=== PATIENT | female | born 1960 | race Two or more races ===

== ENCOUNTER → 2017-06-08 09:32 | Outpatient (CLI) | payer OTHER ==
[~2017-06-08 09:32] MED LIST: AVAPRO300 MG
== END | disposition home or self-care (01) ==
LOC: LAB 09:32
DX: E03.8 Other specified hypothyroidism (principal); E21.3 Hyperparathyroidism, unspecified; E88.89 Other specified metabolic disorders; M81.8 Other osteoporosis without current pathological fracture; E56.1 Deficiency of vitamin K; E83.42 Hypomagnesemia

== ENCOUNTER 2024-08-17 07:43 | Day surgery (SDC) | payer OTHER ==
[2024-08-17] MEDS ORDERED: MIDAZOLAM HCL 2 MG/2 ML VIAL IV ONE (15:30)
[2024-08-17] MEDS ORDERED: DIPHENHYDRAMINE HCL 50 MG/ML VIAL 1ML IV ONE (15:30)
[2024-08-17] MEDS ORDERED: fentaNYL CITRATE 50 MCG/ML AMPUL IV PUSH ONE (15:30)
[2024-08-17] MEDS ORDERED: ONDANSETRON HCL 2 MG/ML VIAL IV ONE (15:30)
== END 2024-08-17 17:15 | disposition home or self-care (01) ==
LOC: AMB-ENDOS 07:43 → CIR.AMB 13:30 → AMB-ENDOS 17:15
PROVIDERS: ATTEND Colon & Rectal Surgery
DX: K62.1 Rectal polyp (principal); K63.5 Polyp of colon; K57.30 Diverticulosis of large intestine without perforation or abscess without bleeding; K57.32 Diverticulitis of large intestine without perforation or abscess without bleeding